=== PATIENT | female | born 1980 | race Caucasian/White ===

== ENCOUNTER 2019-01-18 08:57 | Emergency (ER) | payer OTHER ==
[~2019-01-18] VITALS: Ht 162.6 cm; Wt 67.1 kg
[2019-01-18 09:28] LABS: BILIRUBIN,URINE NEGATIVE (NEGATIVE); CLARITY,URINE CLEAR (CLEAR); COLOR,URINE YELLOW (YELLOW); KETONES,URINE NEGATIVE (NEGATIVE); LEUKOCYTE ESTERASE ,URINE NEGATIVE (NEGATIVE); NITRITE,URINE NEGATIVE (NEGATIVE); PROTEIN,URINE DIPSTICK NEGATIVE (NEGATIVE); URINE UROBILINOGEN 0.2 mg/dL (0.2 - 1)
[2019-01-18] MEDS ORDERED: KETOROLAC TROMETHAMINE 30 MG/ML VIAL IV ONE (09:30)
[2019-01-18 09:33] LABS: PREGNANCY TEST, URINE NEGATIVE (NEGATIVE)
[2019-01-18 09:43] LABS: BACTERIA,URINE RARE /HPF; EPITHELIAL CELLS,URINE FEW /LPF; RBC,URINE 0-5 /HPF (0-5); WBC,URINE (MAN) 0-5 /HPF (0-5)
[2019-01-18 09:59] LABS: BASOPHILS % 0.5 % (0.0-1.0); EOSINOPHILS # (AUTO) 0.2 (0.0-0.4); EOSINOPHILS % 3.1 % (0.0-6.0); HEMATOCRIT 41.6 % (34.2-44.1); HEMOGLOBIN 13.6 g/dL (12.0-16.0); LYMPHOCYTES # (AUTO) 1.8 (1.0-3.2); LYMPHOCYTES % 23.2 % (18.0-39.1); MEAN CORPUSCULAR HEMOGLOBIN 27.2 pg (28-32); MEAN CORPUSCULAR HGB CONC 32.7 g/dL (31-35); MEAN CORPUSCULAR VOLUME 83.2 fL (81-99); MONOCYTES # (AUTO) 0.6 (0.2-0.8); MONOCYTES % 7.7 % (4.4-11.3); NEUTROPHILS # (AUTO) 5.1 (2.1-6.9); NEUTROPHILS % 65.2 % (38.7-80.0); PLATELET COUNT 366 x10e3/uL (140-360); RED CELL DISTRIBUTION WIDTH 13.6 % (11.7-14.4)
[2019-01-18] MEDS ORDERED: MORPHINE SULFATE INJ 4 MG/ML INJ 1ML IV PRN (10:15)
[2019-01-18 10:17] LABS: ALANINE AMINOTRANSFERASE 15 IU/L (0-55); ALBUMIN 3.6 g/dL (3.5-5.0); ALBUMIN/GLOBULIN RATIO 1.1 (0.8-2.0); ALKALINE PHOSPHATASE 62 IU/L (40-150); BLOOD UREA NITROGEN 18 mg/dL (7-26); BUN/CREATININE RATIO 21 (6-25); CARBON DIOXIDE 24 mmol/L (22-29); CHLORIDE 106 mmol/L (98-107); CREATININE, SERUM 0.85 mg/dL (0.57-1.11); EST GLOMERULAR FILTRATION RATE > 60 ML/MIN (60-); GLUCOSE 95 mg/dL (74-118); SODIUM 140 mmol/L (136-145)
--- NOTE | 2019-01-18 10:19 | Diagnostic Imaging Report ---
Exam: CT abdomen and pelvis Clinical history: Renal stone Technique: Helical images of the abdomen and pelvis were obtained without contrast using the renal stone protocol DOSE REDUCTION: The exams was performed according to the departmental dose-optimization program which includes automated exposure control, adjustment of the mA and/or kV according to patient size and/or use of iterative reconstruction technique. Findings: The lung bases are clear. There is no evidence of pleural effusion. The cardiac size is within normal limits. The liver, spleen, pancreas, gallbladder, adrenal glands, and kidneys are unremarkable. No radiopaque stones are noted in bilateral renal collecting systems. The small and large bowels are normal in caliber without evidence of obstruction. Moderate retained feces are noted in the colon. The appendix is visualized and unremarkable. The bladder, uterus, and ovaries are within normal limits. There is no evidence of lymphadenopathy or free fluid. The aorta and IVC are normal in caliber. Impression: 1. No CT evidence of radiopaque stones in bilateral renal collecting systems. Signed by: Dr. Roderick Tidwell MD on 01/18/2019 10:16 AM
[2019-01-18 11:08] VITALS: BP 123/74
== END 2019-01-18 11:18 | disposition home or self-care (01) ==
LOC: ER 08:57
DX: M54.5 Low back pain (principal); S33.5XXA Sprain of ligaments of lumbar spine, initial encounter; R11.0 Nausea
CPT/HCPCS: 36415; 74176; 80053; 81001; 81025; 85025; 99284; J1885; J2270

== ENCOUNTER 2021-01-20 15:02 | Emergency (ER) | payer BC, OTHER ==
[~2021-01-20] VITALS: Ht 170.2 cm; Wt 86.2 kg
[2021-01-20] MEDS ORDERED: KETOROLAC TROMETHAMINE 30 MG/ML VIAL IV STA (15:28)
[2021-01-20] MEDS ORDERED: ONDANSETRON HCL INJ 2MG/ML 2ML 2 MG/ML VIAL IV STA (15:28)
[2021-01-20] MEDS ORDERED: CASIRIVIMAB/IMDEVIMAB 10 ML in SODIUM CHLORIDE 0.9% 100 ML IV ONE (15:30)
[2021-01-20] MEDS ORDERED: SODIUM CHLORIDE 0.9% 1000ML 1,000 ML IV SCH (15:30)
[2021-01-20] MEDS ORDERED: KETOROLAC TROMETHAMINE 60 MG/2 ML VIAL ONE (15:41)
[2021-01-20] MEDS ORDERED: SODIUM CHLORIDE 0.9% 1000ML 1,000 ML ONE (15:41)
[2021-01-20] MEDS ORDERED: ONDANSETRON HCL INJ 2MG/ML 2ML 2 MG/ML VIAL ONE (15:41)
== END 2021-01-20 17:15 | disposition home or self-care (01) ==
LOC: ER 15:05
DX: R50.9 Fever, unspecified (principal); R05 Cough; U07.1 COVID-19; R11.2 Nausea with vomiting, unspecified
CPT/HCPCS: 99283; J1885; J2405; J7030